=== PATIENT | male | born 1960 | race Caucasian/White ===

== ENCOUNTER 2024-01-09 14:18 | Outpatient (CLI) | payer MEDICARE, SELFPAY ==
--- NOTE | 2024-01-09 14:24 | CT_ITS ---
WS: [id number] LDCT LUNG CANCER SCREENING HISTORY: NICOTINE DEPENDENCE TECHNIQUE: Axial imaging performed from the apices to 1 cm below the costophrenic angles. Coronal and sagittal reformats are submitted with axial MIP series. All CT scans at [facility] use at least one of these dose optimization techniques: automated exposure control; mA and/or kV adjustment per patient size (includes targeted exams where dose is matched to clinical indication); or iterativ e reconstruction. DLP: 52.11 mGy.cm DIvol: Mean CTDIvol: 0.80 (mGy) COMPARISON: None available. Diagnostic quality: Satisfactory Lungs: Hyperinflated lungs. Multi lobar abnormalities are identified. RIGHT upper lobe: Subpleural irregular opacification 1.3 x 0.5 cm. Mild anterior groundglass attenuat ion. Additional area of very subtle groundglass attenuation along the fissure. RIGHT lower lobe perifissural nodule 0.8 cm at the lung base there are 2 irregular opacifications. Th lawrence opacifications contain solid and peripheral groundglass attenuation. The largest is 2.3 x 2.7 cm. LEFT upper lobe scattered areas of very subtle groundglass attenuation. 0.8 mm nodule central upper l obe, image 105 of series 4. Additional peripheral more inferior groundglass attenuation less than 3 c m. LEFT lower lobe basilar opacification abutting along the diaphragm measures 6.0 cm x 3.4 cm. There is an additional smaller irregular nodule at the base. Additional smaller subpleural mixed opacificatio ns. Heart: Moderately enlarged. Defibrillator.. Other findings: Mild gynecomastia. No adenopathy identified. Lymph nodes would be easily obscured wit hout IV contrast. Small RIGHT adrenal adenoma is reidentified. Prior sternal fracture. Prior spine díaz rgery. CT/CT lung screening [id number] IMPRESSION: LUNG-RADS: 4B-Suspicious FOLLOW UP: PET/CT recommended OTHER FINDINGS (S MODIFIER): None. Numerous bilateral pulmonary opacifications and groundglass opacifications. Femi plastic versus infectious. PET/CT should be obtained.
== END 2024-01-09 14:19 | disposition home or self-care (01) ==
LOC: RAD 14:19
PROVIDERS: PCP Internal Medicine; Visit Provider Internal Medicine
DX: Z87.891 Personal history of nicotine dependence (principal); Z12.2 Encounter for screening for malignant neoplasm of respiratory organs
CPT/HCPCS: 71271